=== PATIENT | female | born 1965 | race Caucasian/White ===

== ENCOUNTER 2017-01-02 23:15 | Emergency (ER) | payer SELFPAY ==
[~2017-01-02] VITALS: Ht 172.7 cm; Wt 95.3 kg
--- NOTE | 2017-01-02 23:55 | Emergency Room Report ---
History of Present Illness General Chief Complaint: Lower Extremity Injury Source: Patient, EMS Present Illness HPI Is a 51-year-old female with psychiatric history. She called 911 because she said she cannot walk because she broke her feet. She said she was walking and felt pain in her feet date to her broken. She took off her shoes and threw them away. Pain is 10 out of 10. No other injury. No nausea no vomiting. Nothing made it better and nothing made it worse. Allergies: Coded Allergies: No Known Allergies (Unverified , 01/02/17) Patient History Past Medical History: see triage record, old chart reviewed Past Surgical History: other Pertinent Family History: none Social History: Reports: drug use, smoking Last Menstrual Period: NONE Now: No Immunizations: other Reviewed Nursing Documentation: PMH: Agreed, PSxH: Agreed Nursing Documentation-PMH Past Medical History: No Stated History Review of Systems Eye: Denies: blurred vision, eye pain ENT: Denies: ear pain, nose congestion, throat swelling Respiratory: Denies: cough, shortness of breath Cardiovascular: Denies: chest pain, palpitations Gastrointestinal: Denies: abdominal pain, diarrhea, nausea, vomiting Musculoskeletal: Reports: muscle pain, Denies: back pain, joint pain Skin: Denies: rash Neurological: Denies: headache, numbness Endocrine: Denies: increased thirst, increased urine Hematologic/Lymphatic: Denies: easy bruising All Other Systems: negative except mentioned in HPI Physical Exam Vital Signs Date Time Temp Pulse Resp B/P Pulse Ox O2 Delivery O2 Flow Rate FiO2 01/02/17 23:14 98.2 96 16 132/78 98 vitals normal Sp02 EP Interpretation: reviewed, normal General Appearance: well appearing, no apparent distress, alert, other - Disheveled Head: normocephalic, atraumatic Eyes: bilateral eye EOMI, bilateral eye PERRL ENT: hearing grossly normal, normal pharynx Neck: full range of motion, supple, no meningismus Respiratory: chest non-tender, lungs clear, normal breath sounds Cardiovascular #1: regular rate, rhythm, no murmur Gastrointestinal: normal bowel sounds, non tender, no mass, no organomegaly, no bruit, non-distended Musculoskeletal: back normal, gait/station normal, normal range of motion, other - Patient walking around without any difficulty. No deformity. Diffuse tenderness. Neurologic: alert, oriented x3 Psychiatric: mood/affect normal Skin: warm/dry Medical Decision Making Diagnostic Impression: Primary Impression: Foot pain, bilateral ER Course Patient presents with bilateral feet pain. I see no trauma or deformity. Patient walking without difficulty. I told patient that is unlikely to be broken spontaneously. She started yelling said that her feet are broken and she knows it. She told me that she would cuco everybody in we'll do x-rays. X- rays are negative. Patient discharged home. Other X-Ray Diagnostic Results Other X-Ray Diagnostic Results : X-Ray Ordered: X-rays of right foot Date: January 03, 2017 Time: 02:07 EP Interpretation: Yes Findings: no fractures, no dislocation, no soft tissue swelling Number of Views: 3 Other Impression x-rays of left foot: 3 views. interpreted by me. No fracture or dislocation. No soft tissue swelling. No foreign body. Last Vital Signs Date Time Temp Pulse Resp B/P Pulse Ox O2 Delivery O2 Flow Rate FiO2 01/02/17 23:14 98.2 96 16 132/78 98 Status: improved Disposition: HOME, SELF-CARE Condition: Stable Additional Instructions: followup your Dr. in 7 days. Return if worse. CASSIE GILBERT M.D. January 02, 2017 23:55
[2017-01-03 00:09] VITALS: BP 132/78
--- NOTE | 2017-01-03 10:02 | Diagnostic Imaging Report ---
Indication: Pain Comparison: None Findings: 3 views of the left foot were obtained. No acute fractures identified. There is sclerosis and deformity of the second metatarsal head which is probably on the basis of previous injury. Soft tissues are unremarkable. Impression: No acute injury
--- NOTE | 2017-01-03 10:03 | Diagnostic Imaging Report ---
Indication: Pain Comparison: None Findings: 3 views of the right foot were obtained. No acute fractures, malalignment, erosions or periostitis are identified. Bone mineralization is within normal limits. Soft tissues are unremarkable. Impression: Negative examination of the right foot.
== END 2017-01-03 00:09 | disposition home or self-care (01) ==
LOC: EDBD 23:15 → EMR 23:40
DX: M79.672 Pain in left foot (principal); M79.671 Pain in right foot; F17.200 Nicotine dependence, unspecified, uncomplicated; F19.10 Other psychoactive substance abuse, uncomplicated
CPT/HCPCS: 99283